=== PATIENT | male | born 1955 | race American Indian/Alaskan Native ===

== ENCOUNTER 2018-06-20 14:48 | Outpatient (CLI) | payer BC ==
--- NOTE | 2018-06-20 15:38 | XRay Report ---
XRAY LUMBAR SPINE THREE VIEWS: 06/20/18 14:48:00 CLINICAL: Back pain and sciatica. FINDINGS: Straightening of the L-spine with loss of the normal cervical lordosis. Grade I L5-S1 retrolisthesis with no pars defect identified. The rest of the bodies are normal alignment. Degenerative disc disease with disc space narrowing greatest at L4-5 and L2-3. Anterior osteophytes at all levels and most prominent at L4-5. Prominent right lateral osteophyte at L2-3. Prominent posterior osteophytes at L4-5. Multilevel facet joint sclerosis. The neural foramina are not well demonstrated on the oblique views. The pedicles are intact. No fracture. Normal soft tissues. IMPRESSION: Moderate degenerative disc disease.
== END 2018-06-20 14:49 | disposition home or self-care (01) ==
LOC: SPVIMAG 14:48
DX: M51.36 Other intervertebral disc degeneration, lumbar region (principal)
CPT/HCPCS: 72100